=== PATIENT | female | born 1995 | race Caucasian/White ===

== ENCOUNTER 2017-08-18 10:15 | Observation (INO) | payer OTHER ==
[~2017-08-18] VITALS: Ht 162.6 cm; Wt 69.0 kg
[2017-08-18] MEDS ORDERED: CLINDAMYCIN PHOS 900MG/ D5W 50 50 ML IV STA (10:16)
[2017-08-18] MEDS ORDERED: DEXAMETHASONE 10MG/ML PF INJ IV ONE ×2 (10:30→12:30)
[2017-08-18 10:41] LABS: BASOPHILS # (AUTO) 0.1 (0.0-0.1); BASOPHILS % 0.2 % (0.0-1.0); EOSINOPHILS % 0.2 % (0.0-6.0); HEMATOCRIT 33.6 % (34.2-44.1); HEMOGLOBIN 10.7 g/dL (12.0-16.0); LYMPHOCYTES # (AUTO) 1.5 (1.0-3.2); LYMPHOCYTES % 7.4 % (18.0-39.1); MEAN CORPUSCULAR HEMOGLOBIN 26.4 pg (28-32); MEAN CORPUSCULAR HGB CONC 31.8 g/dL (31-35); MONOCYTES % 4.8 % (4.4-11.3); NEUTROPHILS # (AUTO) 17.4 (2.1-6.9); NEUTROPHILS % 86.9 % (38.7-80.0); PLATELET COUNT 473 x10e3/uL (140-360); RED BLOOD COUNT 4.05 x10e6/uL (3.6-5.1); RED CELL DISTRIBUTION WIDTH 15.8 % (11.7-14.4)
[2017-08-18 10:51] LABS: INR 1.17
[2017-08-18 10:55] LABS: ANION GAP 12.7 mmol/L (8-16); BLOOD UREA NITROGEN 11 mg/dL (7-26); BUN/CREATININE RATIO 15 (6-25); CALCIUM 9.9 mg/dL (8.4-10.2); CARBON DIOXIDE 25 mmol/L (22-29); CHLORIDE 104 mmol/L (98-107); CREATININE, SERUM 0.73 mg/dL (0.57-1.11); EST GLOMERULAR FILTRATION RATE > 60 ML/MIN (60-); GLUCOSE 95 mg/dL (74-118); POTASSIUM 3.7 mmol/L (3.5-5.1); SODIUM 138 mmol/L (136-145)
--- NOTE | 2017-08-18 12:34 | Diagnostic Imaging Report ---
Exam: Soft tissue neck CT with IV contrast History: Rule out left peritonsillar abscess Comparison studies: None Technique: Axial, coronal and sagittal images from the skull base to the thoracic inlet. Coronal and sagittal images reconstructed from the axial data. Intravenous contrast: 100 cc of Omnipaque 300. Findings: Soft tissues: Enlarged oropharyngeal tonsils with striated appearance compatible with tonsillitis. There is a 1.0 cm peripherally enhancing fluid collection/left peritonsillar abscess with surrounding reactive inflammatory changes compatible with cellulitis which extend into the adjacent left para for injury on some and anterior to the left carotid a cyst in the upper neck. Lymph nodes: Mildly enlarged reactive heterogeneously enhancing bilateral suprahyoid and left infrahyoid reactive lymph nodes. The largest lymph node, a left level 2 suprahyoid lymph node measures 3.0 cm Vessels: The carotid and vertebral arteries and internal jugular veins are patent. The left internal jugular vein is partially compressed by enlarged reactive left cervical lymph nodes. Glands (thyroid, parotid and submandibular): Normal in size and symmetric. No masses. Orbits: No abnormalities. Sinuses: Clear aside from 2 small retention cysts in the left maxillary sinus. Temporal bones: No gross abnormalities. Skull base and facial bones: Intact. Cervical spine: Disc height maintained. Patent canal and foramina. IMPRESSION: 1. Tonsillitis with 1.0 cm left peritonsillar abscess and reactive cellulitis in the left regional deep neck and facial soft tissue. 2. Mildly enlarged reactive cervical lymph nodes, left greater than right. Findings discussed with Dr. Nguyen at 12:23 AM on 08/18/2017. Signed by: Dr. Jasbir Rene M.D. on 08/18/2017 12:30 PM
[2017-08-18] MEDS ORDERED: MORPHINE SULFATE 4 MG/ML SYR IV STA (12:59)
[2017-08-18] MEDS ORDERED: ONDANSETRON HCL 4 MG ORAL DISINTEGRATING TAB PO ONE (13:00)
[2017-08-18] MEDS ORDERED: MORPHINE SULFATE 2 MG/ML SYR ONE (13:20)
[2017-08-18] MEDS ORDERED: SODIUM CHLORIDE 0.9% 50ML 50 ML ONE (13:25)
[2017-08-18] MEDS ORDERED: IOPAMIDOL 370 MG/ML 200 ML INFUS..BTL INJ ONE (13:26)
[2017-08-18] MEDS ORDERED: MORPHINE SULFATE 2 MG/ML SYR IV PRN (13:30)
[2017-08-18] MEDS ORDERED: CEFTRIAXONE SOD 1 GM VIAL IV SCH (13:45)
[2017-08-18] MEDS ORDERED: DEXAMETHASONE SOD PHOS 10 MG/1 ML VIAL IV ONE (13:50)
[2017-08-18] MEDS ORDERED: ONDANSETRON HCL 4 MG ORAL DISINTEGRATING TAB PO PRN (14:00)
--- OUTSIDE RECORDS SUMMARY | 2017-08-18 14:22 | XMS REPORT ---
[facility] Address [facility] Phone Unavailable Care Team Providers Care Curator [employer] Name Role Phone GARY VOGEL Unavailable Unavailable Problems This patient has no known problems. Allergies, Adverse Reactions, Alerts This patient has no known allergies or adverse reactions. Medications This patient has no known medications. Results Test Description Test Time Test Comments Text Results Atomic Results Result Comments CT SOFT TISSUE NECK [address] [place] [address] Patient Name: STAR CRANE MR #: [id number] : 1995 Age/Sex: 22/F Req #: [id number] Adm Physician: Ordered by: GARY VOGEL MD Report #: [id number] Location: ER Room/Bed: Procedure: [id number] CT/CT SOFT TISSUE NECK W Exam Date: 08/18/17 Exam Time: 1130 REPORT STATUS: Signed Exam: Soft tissue neck CT with IV contrast History: Rule out left peritonsillar abscess Comparison studies: None Technique: Axial, coronal and sagittal images from the skull base to the thoracic inlet. Coronal and sagittal images reconstructed from the axial data. Intravenous contrast: 100 cc of Omnipaque 300. Findings: Soft tissues: Enlarged oropharyngeal tonsils with striated appearance compatible with tonsillitis. There is a 1.0 cm peripherally enhancing fluid collection/left peritonsillar abscess with surrounding reactive inflammatory changes compatible with cellulitis which extend into the adjacent left para for injury on some and anterior to the left carotid a cyst in the upper neck. Lymph nodes: Mildly enlarged reactive heterogeneously enhancing bilateral suprahyoid and left infrahyoid reactive lymph nodes. The largest lymph node, a left level 2 suprahyoid lymph node measures 3.0 cm Vessels: The carotid and vertebral arteries and internal jugular veins are patent. The left internal jugular vein is partially compressed by enlarged reactive left cervical lymph nodes. Glands (thyroid, parotid and submandibular): Normal in size and symmetric. No masses. Orbits: No abnormalities. Sinuses: Clear aside from 2 small retention cysts in the left maxillary sinus. Temporal bones: No gross abnormalities. Skull base and facial bones: Intact. Cervical spine: Disc height maintained. Patent canal and foramina. IMPRESSION: 1. Tonsillitis with 1.0 cm left peritonsillar abscess and reactive cellulitis in the left regional deep neck and facial soft tissue. 2. Mildly enlarged reactive cervical lymph nodes, left greater than right. Findings discussed with Dr. Vogel at 12:23 AM on 08/18/2017. Signed by: Dr. Laith Rene M.D. on 08/18/2017 12:30 PM Dictated By: LAITH RENE MD 1230 Transcribed By: YENNIFER on 08/18/17 1230 COPY TO: GARY VOGEL MD
[2017-08-18] MEDS: SODIUM CHLORIDE 0.9% 1000ML 1,000 ML IV SCH ×2 (14:25→20:09)
[2017-08-18] MEDS ORDERED: PIPER-TAZ 3.375 GM / NS 50ML IV SCH (15:00)
[2017-08-18] MEDS ORDERED: PIPER-TAZ 3.375 GM 50 ML IV SCH ×2 (15:00)
[2017-08-18] MEDS ORDERED: IBUPROFEN 600 MG TAB PO STA (16:00)
[2017-08-18 16:23] VITALS: BP 108/63
[2017-08-18 16:47] VITALS: BP 108/63
[2017-08-18 17:18] VITALS: BP 108/63
[2017-08-18 20:00] VITALS: BP 108/70
[2017-08-18] MEDS ORDERED: CLINDAMYCIN PHOS 900MG/ D5W 50 50 ML IV SCH (20:00)
[2017-08-18] MEDS: DEXAMETHASONE SOD PHOS 10 MG/1 ML VIAL IV SCH (22:00)
[2017-08-18] MEDS: CLINDAMYCIN PHOS 900MG/ D5W 50 50 ML IV SCH (22:00)
[2017-08-19] VITALS: BP 101/63
[2017-08-19 00:09] VITALS: BP 108/70
[2017-08-19] MEDS: SODIUM CHLORIDE 0.9% 1000ML 1,000 ML IV SCH (03:06)
[2017-08-19 04:00] VITALS: BP 105/65
[2017-08-19] MEDS: DEXAMETHASONE SOD PHOS 10 MG/1 ML VIAL IV SCH (05:54)
[2017-08-19] MEDS: CLINDAMYCIN PHOS 900MG/ D5W 50 50 ML IV SCH (05:54)
[2017-08-19 06:38] LABS: BASOPHILS % 0.1 % (0.0-1.0); HEMATOCRIT 30.2 % (34.2-44.1); HEMOGLOBIN 9.6 g/dL (12.0-16.0); LYMPHOCYTES # (AUTO) 1.1 (1.0-3.2); LYMPHOCYTES % 5.3 % (18.0-39.1); MEAN CORPUSCULAR HEMOGLOBIN 26.3 pg (28-32); MEAN CORPUSCULAR HGB CONC 31.8 g/dL (31-35); MEAN CORPUSCULAR VOLUME 82.7 fL (81-99); MONOCYTES # (AUTO) 0.2 (0.2-0.8); MONOCYTES % 0.8 % (4.4-11.3); NEUTROPHILS # (AUTO) 18.6 (2.1-6.9); PLATELET COUNT 445 x10e3/uL (140-360); RED BLOOD COUNT 3.65 x10e6/uL (3.6-5.1); RED CELL DISTRIBUTION WIDTH 15.9 % (11.7-14.4)
[2017-08-19 06:59] LABS: ANION GAP 12.9 mmol/L (8-16); BLOOD UREA NITROGEN 9 mg/dL (7-26); BUN/CREATININE RATIO 13 (6-25); CALCIUM 9.6 mg/dL (8.4-10.2); CARBON DIOXIDE 22 mmol/L (22-29); CHLORIDE 108 mmol/L (98-107); EST GLOMERULAR FILTRATION RATE > 60 ML/MIN (60-); GLUCOSE 162 mg/dL (74-118); POTASSIUM 3.9 mmol/L (3.5-5.1); SODIUM 139 mmol/L (136-145)
[2017-08-19 07:41] VITALS: BP 115/69
[2017-08-19] MEDS ORDERED: CLINDAMYCIN HC150 MG PO (10:28)
[2017-08-19] MEDS ORDERED: PREDNISONE20 MG PO (10:29)
[2017-08-19] MEDS ORDERED: CEFTRIAXONE SOD 1 GM VIAL IM ONE (11:00)
--- NOTE | 2017-08-19 11:08 | Discharge Summary ---
PRIMARY CARE DOCTOR: Ruby. FINAL DIAGNOSIS: Early sepsis present on admission due to left-sided 1-cm peritonsillar abscess with cellulitis. DATA WAREHOUSING ARCHITECT: Dr. Abdelrahman Carrillo, ENT specialist. PROCEDURES/STUDIES PERFORMED: Neck CT. HISTORY: Per H and P. HOSPITAL COURSE: The patient was admitted. The patient received Decadron, IV Rocephin and IV clindamycin per Dr. Carrillo's recommendation. The patient was evaluated by Dr. Carrillo. Clinically, the patient improved. Therefore, drainage is not indicated. The patient will go home on clindamycin for 5 more days to complete a course. The patient was instructed to eat some yogurt to try to prevent diarrhea. The patient was seen and examined today. CONDITION ON DISCHARGE: Stable. DISCHARGE MEDICATIONS: Please see medication reconciliation form. Job#: [id number] cc:RUBY
--- NOTE | 2017-08-19 12:19 | Consultation ---
DATE OF CONSULTATION: August 19, 2017 HISTORY OF PRESENT ILLNESS: I was kindly asked to see this 22-year-old woman with no previous episodes of tonsillitis, who presented with an episode of tonsillitis initially treated by her primary care physician. She was noncompliant with the completion of her antibiotic course and then developed left-sided throat pain. She presented to the emergency department for evaluation and treatment. She was subsequently found to have a 1-cm left peritonsillar space abscess and was admitted to the hospital and placed on IV antibiotics and steroids. On the morning of her examination, she had complete resolution of her sore throat. PAST MEDICAL HISTORY AND PAST SURGICAL HISTORY: Reviewed in detail in the chart and was noncontributory. PHYSICAL EXAMINATION: The tympanic membranes and external auditory canals are normal. Nasal examination is unremarkable. The oral cavity and pharyngeal examination is pertinent for slight asymmetry of the tonsils, with the left side being larger than the right. There is no anterior tonsillar pillar edema. The uvula is midline. There is no exudate on the tonsils, and she has minimal bilateral shotty cervical adenopathy. ASSESSMENT: Left peritonsillar space abscess responsive to intravenous antibiotics and steroids. PLAN: Cleared for discharge from an otolaryngology standpoint on prednisone 20 mg daily for 5 days and cefdinir 300 mg 2 p.o. daily for 10 days and close followup with her primary care physician. Job#: [id number]
[2017-08-19] MEDS ORDERED: CEFTRIAXONE SOD 1 GM VIAL IV SCH (14:30)
== END 2017-08-19 11:08 | disposition home or self-care (01) ==
LOC: ER 10:15 → ERHOLD 14:20 → IMCU 16:00
PROVIDERS: ADMIT Internal Medicine; ATTEND Internal Medicine
DX: A41.9 Sepsis, unspecified organism (principal); J03.01 Acute recurrent streptococcal tonsillitis; Z91.14 Patient's other noncompliance with medication regimen; R59.0 Localized enlarged lymph nodes
CPT/HCPCS: 36415; 80048; 85025; 96367; 96376; G0378 ×2; J0696; J1100; J7030; 99284; J2270; Q9967